=== PATIENT | female | born 1970 | race African-American/Black ===

== ENCOUNTER 2017-07-29 03:56 | Emergency (ER) | payer BC, OTHER ==
[~2017-07-29] VITALS: Ht 170.2 cm; Wt 141.7 kg
[~2017-07-29 03:56] MED LIST: PHEN37.511 PO
[2017-07-29 04:08] VITALS: BP 133/77; PULSE 93; RESP 16; TEMP 98.5; O2SAT 97
[2017-07-29 07:07] VITALS: BP 133/77; PULSE 93; RESP 18; TEMP 98.5; O2SAT 97
[2017-07-29] MEDS ORDERED: METH2.5T PO (07:10)
[2017-07-29] MEDS ORDERED: FOLI400T PO (07:10)
[2017-07-29] MEDS ORDERED: SODIUM CHLORIDE 0.9% FLUSH 10 ML FLUSH IV FLUSH PRN (07:30)
[2017-07-29] MEDS ORDERED: CLINDAMYCIN INJ 300 MG in SODIUM CHLORIDE 0.9% INJ 100 ML IV ONE (07:30)
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
[2017-07-29 07:38] LABS: AUTOMATED NEUTROPHIL # 4.9 TH/MM3 (1.8-7.7); BASOPHIL % 0.4 % (0.0-2.0); EOSINOPHIL # 0.1 TH/MM3 (0-0.4); EOSINOPHIL % 1.1 % (0.0-4.0); HEMATOCRIT 38.8 % (35.0-46.0); HEMO FLAGS DIFF FINAL; LYMPH % 26.1 % (9.0-44.0); MEAN CORPUSCULAR HEMOGLOBIN 29.2 PG (27.0-34.0); MEAN CORPUSCULAR HGB CONC 32.8 % (32.0-36.0); MONO % 8.5 % (0.0-8.0); NEUT % 63.9 % (16.0-70.0); PLATELET COUNT 324 TH/MM3 (150-450); RED BLOOD COUNT 4.36 MIL/MM3 (4.00-5.30); RED CELL DISTRIBUTION WIDTH 15.6 % (11.6-17.2); WHITE BLOOD COUNT 7.6 TH/MM3 (4.0-11.0)
[2017-07-29 07:42] VITALS: BP 124/69; PULSE 76; RESP 18; O2SAT 99
[2017-07-29 07:48] LABS: CHLORIDE 102 MEQ/L (98-107); POTASSIUM 3.6 MEQ/L (3.5-5.1); SODIUM (NA) 137 MEQ/L (136-145)
[2017-07-29 07:51] LABS: ANION GAP 7 MEQ/L (5-15); BLOOD UREA NITROGEN 13 MG/DL (7-18)
[2017-07-29 07:54] LABS: ALT (GPT) 23 U/L (10-53); AST (GOT) 18 U/L (15-37); GLOMERULAR FILTRATION RATE 65 ML/MIN (>89)
[2017-07-29 07:56] LABS: TOTAL BILIRUBIN ADULT 0.3 MG/DL (0.2-1.0)
[2017-07-29 07:57] LABS: ALKALINE PHOSPHATASE 88 U/L (45-117)
[2017-07-29 07:59] LABS: BETA HCG QUANT 3 MIU/ML (0-5)
[2017-07-29] MEDS ORDERED: CLIN1CAP6 PO (08:16)
[2017-07-29] MEDS ORDERED: BACT800T5 PO (08:21)
[2017-07-29] MEDS ORDERED: ACETAMINOPHEN/HYDROcodone 325 MG/5 MG TAB PO ONE (08:30)
[2017-07-29] MEDS ORDERED: CLINDAMYCIN 150 MG CAP PO SCH (08:30)
== END 2017-07-29 08:57 | disposition home or self-care (01) ==
LOC: PHED 03:56
DX: L02.211 Cutaneous abscess of abdominal wall (principal); B96.89 Other specified bacterial agents as the cause of diseases classified elsewhere; M06.9 Rheumatoid arthritis, unspecified
CPT/HCPCS: 80053; 84702; 85025; 87070; 87185; 96365